=== PATIENT | female | born 1990 ===

== ENCOUNTER 2017-08-19 09:52 | Inpatient (IN) | payer MEDICAID ==
[2017-08-19 10:49] VITALS: BMI 34.4
[2017-08-19] MEDS: Lactated Ringer's 1,000 ML IV SCH ×2 (11:00→11:45)
[2017-08-19] MEDS ORDERED: ceFAZolin IV 2 gm in Dextrose 2 GM/50 ML BAG IVPB ONE (11:10)
[2017-08-19] MEDS ORDERED: Oxytocin 30 units/LR 500ML 30 U/500 ML BAG IV ONE (11:20)
[2017-08-19 11:56] LABS: BASO # 0.1 K/uL (0.0-0.2); BASO % 0.5 % (0.0-2.0); EOS # 0.1 K/uL (0.0-0.7); HEMOGLOBIN 10.8 g/dL (12.0-16.0); LYMPH # 1.6 K/uL (1.0-4.3); LYMPH % 14.8 % (20.0-40.0); MEAN CELL VOLUME 75.9 fl (81.0-99.0); MEAN PLATELET VOLUME 8.7 fl (7.2-11.7); MONO # 0.9 K/uL (0.0-0.8); NEUT # 8.3 K/uL (1.8-7.0); NEUT % 75.7 % (50.0-75.0); RBC 4.3 Mil/uL (3.80-5.20); RED CELL DISTRIBUTION WIDTH 16.2 % (11.5-14.5)
[2017-08-19] MEDS ORDERED: Morphine 1 mg/ml preservative-free Inj(Duramorph) ONE (12:39)
[2017-08-19] MEDS ORDERED: ePHEDrine 50 mg/ml Inj ONE (13:05)
[2017-08-19] MEDS ORDERED: Morphine 1 mg/ml preservative-free Inj(Duramorph) IT ONE (13:18)
--- NOTE | 2017-08-19 14:23 | OBADHP ---
Datetime: 08/19/2017 14:11 Admit Comment, IP Provider: Patient is a 27 yo who presents today for a scheduled primary csec tion due to Macrosomia with EFW 10 lbs. Patient denies contractions, no vaginal bleeding or demetris kage of fluids. movement present. PMHx- NOne PSurgHx- LEEP Social Hx- Patiend denies smoking, drinking and drug use Meds- PNV All- NKDA Labs- RPR- NR A pos Gc/Chlamydia negative Quantiferon pos, for chest x ray pp Glucola- 127, 139 HIV- NR Pap - NILM HPV pos 04/20/2017 GBS - negative US 08/02- EFW 4287gms >99% GUEVARA 19 Patient consented for cs 08/18/17 with Yemeni interpretor present. All risks and benefits reviewed A/P- 27yo at 39+ wks for Primary cs due to macrosomia NPO IVF Ancef 2gm IV Prep for OR Pelvic Type - PN: Adequate Extremities - PN: Normal Abdomen - PN: Normal Back - PN: Normal Breast - PN: Normal Lungs - PN: Normal Heart - PN: Normal Thyroid - PN: Normal Neurologic - PN: Normal HEENT - PN: Normal General - PN: Normal IP Chief Complaint: Scheduled Section Genitourinary Exam: Normal DTRs - PN: Normal IP Adm Impression: Term, intrauterine IP Admit Plan: Admit to unit
--- NOTE | 2017-08-19 14:26 | OBDS ---
DELIVERY PERSONNEL Delivery Doctor: Constance Lynn MD Scrub Nurse: Tierra Sadaf OBT Digital Design Engineer: Edwin Joe RN Anesthesiologist: Cahndni, MATERNAL INFORMATION Delivery Anesthesia: Spinal Medications in Delivery: Pitocin Estimated Blood Loss (ml): 800 Placenta Cultured: No Maternal Complications: None Provider Comments: See Operative note LABOR SUMMARY EDC: 08/23/2017 00:00 No. Babies in Womb: 1 Attempted: No Labor Anesthesia: None LABOR INFORMATION Group B Beta Strep: Negative STAGES OF LABOR Stage 3 hrs: 0 Stage 3 min: 1 CSECTION DELIVERY Primary Indication: Macrosomia CSection Urgency: Elective CSection Incidence: Repeat Labor: No Labor CSection Incision: Lower Uterine Transverse BABY A INFORMATION Delivery Date/Time: 08/19/2017 13:13 Method of Delivery: Born in Route : No : N/A Forceps: N/A Vacuum Extraction: N/A Shoulder Dystocia : No SHOULDER DYSTOCIA BABY A Delivery Date/Time: 08/19/2017 13:13 PRESENTATION/POSITION BABY A Presentation: Cephalic PLACENTA INFORMATION BABY A Placenta Delivery Time : 08/19/2017 13:14 Placenta Method of Delivery: Manual Removal Placenta Status: Delivered SCORES BABY A Heart Rate 1 min: >100 bpm Resp Effort 1 min: Good Cry Reflex Irritability 1 min: Cough or Sneeze or Pulls Away Muscle Tone 1 min: Active Motion Color 1 min: Body [place], Extremities Blue SCORE 1 MIN: 9 Heart Rate 5 min: >100 bpm Resp Effort 5 min: Good Cry Reflex Irritability 5 min: Cough or Sneeze or Pulls Away Muscle Tone 5 min: Active Motion Color 5 min: Body [place], Extremities Blue SCORE 5 MIN: 9 INFORMATION BABY A Gestational Age at Delivery: 39.0 Gestational Status: Term Outcome : Liveborn Condition : Stable Infant Sex: Male IDENTIFICATION/MEDS BABY A ID Band Number: [id number] WEIGHT/LENGTH BABY A Birthweight (gms): 4780 Weight (lb): 10 Infant Weight (oz): 9 CORD INFORMATION BABY A No. Cord Vessels: 3 Nuchal Cord : N/A Cord Blood Taken: Yes Suction: Mouth; Nose ASSESSMENT BABY A Complications: None Physical Findings at Delivery: Within Normal Limits Infant Respirations: Appears Normal Infant Care By: Transferred To: [facility]
[2017-08-20 08:22] LABS: HEMOGLOBIN 10.9 g/dL (12.0-16.0); MEAN CORPUSCULAR HEMOGLOBIN 25.1 pg (27.0-31.0); MEAN CORPUSCULAR HGB CONC 33.9 g/dL (33.0-37.0); RBC 4.34 Mil/uL (3.80-5.20); RED CELL DISTRIBUTION WIDTH 15.7 % (11.5-14.5); WHITE BLOOD COUNT 12.5 K/uL (4.8-10.8)
--- NOTE | 2017-08-20 18:18 | OBPPN ---
Datetime: 08/20/2017 07:09 PP Pain Prov: Within normal limits PP Nausea Prov: Denies PP Flatus Prov: Yes PP BM Prov: No PP Breasts Prov: Not Done PP Heart Prov: Normal PP Lungs Prov: Normal PP Abdomen/Uterus Prov: Normal PP Lochia Prov: Normal PP Vulva/Perineum Prov: Not Done PP CVA Tenderness Prov: Normal PP Extremities Prov: Normal PP Progress Prov: Abnormal PP Impression Prov: Normal progression PP Plan Prov: Continue present management PP Progress Note Prov: POD 1 S: 27 yo s/p on 08/19/2017. Pt. is seen and examined at bedside this AM. No sign ificant overnight events. Pt reports mild abdominal pain rated 4/10, but well controlled with pain me ds. D/c nayak, dressing to be removed in the afternoon. No nausea, advised to continue diet as tolera mildred. Bottle feeding without difficulty. Lochia is similar to menses volume. No bowel movement, but pa ssing gas per rectum. Denies fever/chills, diarrhea, nausea/vomiting, chest pain, dyspnea, and dizzin ess. O: VS: stable GEN: NAD Cardio: S1S2, no murmurs Lungs: clear breath sounds b/l, no wheezing Abdomen: BS+, tenderness to palpation. Incision scar to be examined with dressing removal in the a fternoon. Uterus is firm and at the level of the umbilicus. EXT: No edema, calves nontender NEURO/PSYCH: AAOx3, no grossly focal deficits, preserved affect and mood. Assessment/Plan: 27 yo s/p on 08/19/2017. Pt remains afebrile, tolerating pain w ith medication, doing well on POD#1. OOB with caution SCDs for DVT prophylaxis, encouraged ambulating Percocet 5/325mg, and Motrin 600mg for pain. Colace 100mg PO BID/Senokot 17.2 mg for constipation Encourage and ambulating f/u CBC post op, pending Tdap before d/c Anticipated d/c to home, 08/22/2017. Case dw OB attending --- Kyle Pérez MD PGY-1 . Attending Note: Pt was seen and discussed with Resident and I agree with the above. IP PP Procedures: None Vital Signs Provider PP: Reviewed; Within Normal Limits Vital Signs Provider Details PP: Incision scar to be examined in afternoon with dressing removal. Bottle feeding.
--- NOTE | 2017-08-21 08:33 | OBPPN ---
Datetime: 08/21/2017 07:13 PP Pain Prov: Within normal limits PP Nausea Prov: Denies PP Flatus Prov: Yes PP BM Prov: Yes PP Breasts Prov: Not Done PP Heart Prov: Normal PP Lungs Prov: Normal PP Abdomen/Uterus Prov: Normal PP Lochia Prov: Normal PP Vulva/Perineum Prov: Not Done PP CVA Tenderness Prov: Normal PP Extremities Prov: Normal PP C/S Incision Prov: Normal PP Progress Prov: Normal PP Impression Prov: Normal progression PP Plan Prov: Continue present management PP Progress Note Prov: 27 y/o F, , s/p . Patient see and examined this morning at the [facility], laying comfortably on bed. Pain is well controlled by medications, encourage ambulation, tole rating PO well. Incision looks intact and clean, + gas and BM last night. Patient denies too much ble eding. Denies chest pain, dyspnea, n/v, fever/chills, diarrhea, nausea/vomiting, and calf pain. O: VS: wnl, afebrile GEN: Awake, alert. NAD HEENT: EOMI, moist mucosa. LUNGS: CTA B/L, no wheezing, rhonci, or rales CVS: RRR, S1, S2 no murmurs ABD: ND, -BS, soft abdomen, firm fundus @ umbilical level. Incision clean and intact no erythema or exudates. EXT: No edema, neg calf tenderness NEURO/PSYCHI: AAOx3, no grossly focal deficit, preserved affect and mood. Assessment/Plan: 27 y/o F, , s/p C. Pt remains afebrile, c/o mild pain. Doing well on POD 2. -C/w regular diet as tolerated, -OOB with caution SCDs for DVT prophylaxis -C/w Percocet 5/325 mg and Ibuprofen 600 mg for pain prn -C/w Colace 100mg PO BID PRN -Encourage and ambulation -H/H 10.9/32.1 -f/u CXR due to + quantiferon gold. -Tdap before d/c. -Anticipated d/c on 08/22/17 YBecerra PGY-1 Attending Note: Pt was d/w resident and I agree with the above. IP PP Procedures: None Vital Signs Provider PP: Reviewed; Within Normal Limits
--- NOTE | 2017-08-21 10:09 | RAD ---
HISTORY: Positive Quantiferon Gold COMPARISON: No prior. TECHNIQUE: Chest PA and lateral FINDINGS: LUNGS: No active pulmonary disease. PLEURA: No significant pleural effusion identified. No pneumothorax apparent. CARDIOVASCULAR: Normal. OSSEOUS STRUCTURES: No significant abnormalities. VISUALIZED UPPER ABDOMEN: Normal. OTHER FINDINGS: None. IMPRESSION: No active disease.
[2017-08-22] MEDS ORDERED: Tetanus/Diphtheria Toxoids 0.5 ml Syringe IM ONE (09:00)
--- NOTE | 2017-08-22 10:30 | OBPPN ---
Datetime: 08/22/2017 07:00 PP Pain Prov: Within normal limits PP Nausea Prov: Denies PP Flatus Prov: Yes PP BM Prov: Yes PP Breasts Prov: Not Done PP Heart Prov: Normal PP Lungs Prov: Normal PP Abdomen/Uterus Prov: Normal PP Lochia Prov: Normal PP Vulva/Perineum Prov: Not Done PP CVA Tenderness Prov: Normal PP Extremities Prov: Normal PP C/S Incision Prov: Normal PP Progress Prov: Normal PP Impression Prov: Normal progression PP Plan Prov: Discharge PP Progress Note Prov: POD 3 S: 27 yo s/p on 08/19/2017. Pt. is seen and examined at bedside this AM. No over night events. Pt reports mild abdominal pain, but well controlled with pain meds. D/c nayak, dressing removed, incision site healing well, no exudate seen, dry and intact. No nausea, advanced diet as to lerated. Breast feeding without difficulty. Lochia is similar to menses volume. Bowel movement yester day and passing gas per rectum. Denies fever/chills, diarrhea, nausea/vomiting, chest pain, dyspnea, and dizziness. O: VS: stable GEN: NAD Cardio: S1S2, no murmurs Lungs: clear breath sounds b/l, no wheezing Abdomen: BS+, slight tenderness to palpation. Incision scar noted, well healing with no exudate se en, dry and intact. Uterus is firm and at the level of the umbilicus. EXT: No edema, calves nontender NEURO/PSYCH: AAOx3, no grossly focal deficits, preserved affect and mood. Assessment/Plan: 27 yo s/p on 08/19/2017. Pt remains afebrile, tolerating pain w ith medication, doing well on POD#3. OOB with caution SCDs for DVT prophylaxis, encouraged ambulating Percocet 5/325mg, and Motrin 600mg for pain. Encourage and ambulating f/u CBC post op: 10.9/32.9 Tdap before d/c Anticipated d/c to home, 08/22/2017. Case dw OB attending --- Kyle Pérez MD PGY-[address] Weir: patient evaluated independently and I agree with the above IP PP Procedures: None Vital Signs Provider PP: Reviewed; Within Normal Limits
--- NOTE | 2017-08-22 10:30 | OBDCSUM ---
Datetime: 08/22/2017 07:22 Discharged to, Provider: Home Follow up at, Provider: Dr. Lynn Disch Instr Activity: Normal activity Disch Instr Diet: Regular Discharge Instructions, Provider: Routine instructions given Discharge Diagnosis, Provider: Term Delivered Discharge Time: 08/22/2017 12:00 Follow up in weeks, Provider: 4 days wound care; 6 wks post Disch Referrals: None Contraception discussed, Prov: Yes Disch Activity Restrictions: No lifting; No driving; Nothing in vagina - [place], tampons, douch e Discharge Comment, Provider: Discharge Summary DOA: 08/19/2017 EGA: 39.3 Diagnosis: Term Risk factors: none Summary of : 27 yo s/p on 08/19/2017. L_D summary DOL: 08/19/2017 at 13:13 NB: M : 11/27 Weight: 4780 g PP summary No serious complications during PP/Post-Op. Lochia= menses, mild pain, controlled with medications Rubella immune, Tdap 08/21/2017 Blood type: A+ CBC pp: 10.9/32.1 Discharge Date: 08/22/2017 Time 10:00 AM Discharge Instructions: -encourage -percocet/Ibuprofen for pain PRN -Ambulate as tolerated -f/u NB visit 3-7 days w/ repairer general and PP visit 6 weeks with OB; Wound care 4-7 days -Contraception: abstinence; pt reports not having a partner. Case d/w OB attending --- Kyle Pérez MD PGY-1 Contraception after Delivery: Undecided
--- NOTE | 2017-08-22 13:52 | OP ---
PROCEDURE DATE: 08/19/2017 PREOPERATIVE DIAGNOSES: Term with macrosomia, desires primary section. POSTOPERATIVE DIAGNOSES: Term with macrosomia, desires primary section, and delivered. PROCEDURE: Primary low transverse section. SURGEON: Rosanna Lane MD LIVESTOCK YARD SUPERVISOR: Montana Jose MD TYPE OF ANESTHESIA: Spinal. ESTIMATED BLOOD LOSS: 800 mL. URINE OUTPUT: 200 mL of clear at the end of the procedure. INTRAVENOUS FLUIDS: 2000 mL lactated Ringer's. FINDINGS: A live male with Apgars of 9 and 9, weight of 10 pounds 9 ounces, delivered in vertex presentation, and light meconium fluid noted. Grossly normal tubes, ovaries, and uterus, closure subcuticular. DESCRIPTION OF PROCEDURE: The patient was taken to the operating room and given spinal anesthesia without difficulty. She was then prepped and draped in the normal sterile fashion in a dorsal supine position with a leftward tilt. A Pfannenstiel skin incision was then made with a scalpel and carried down to the underlying layer of fascia with the Bovie. The fascia was incised in the midline. The incision was then extended laterally using the Bovie. The inferior aspect of the fascial incision was then grasped with Tawana clamps, elevated, and the underlying rectus muscles were dissected off sharply with the Bovie then bluntly. Attention was then turned to the superior aspect of the fascial incision, which in a similar fashion was dissected off sharply with the Bovie and then bluntly. The rectus muscles were meticulously in the midline, the peritoneum was identified, tented up, and entered with Metzenbaum scissors. The incision was then extended laterally with superiorly and inferiorly with paying close attention to the bladder. The bladder blade was then inserted, the vesicouterine peritoneum was identified, tented up, and entered with Metzenbaum scissors. The incision was then extended laterally and the bladder flap was created gently. The bladder blade was then reinserted and the lower uterine segment was then identified, and entered in a transverse fashion with the scalpel. This incision was then extended laterally using bandage scissors and the membranes were then ruptured, light meconium fluid noted. The was then delivered in the vertex presentation atraumatically. The nose and mouth were suctioned on the abdomen. The cord was doubly clamped and cut. The infant was handed off to awaiting pediatricians. Cord blood was then taken. Placenta was exteriorized spontaneously and intact. The uterus was exteriorized and cleared of all clots and debris. The uterine incision was then closed with 1 Vicryl in a running lock fashion and a second layer was then placed with imbrication and good hemostasis was noted. Inspection of uterus, tubes and ovaries revealed grossly normal findings. Copiously Irrigation was performed. The uterus was returned to the abdomen. The gutters were cleared of all clots. Inspection of the incision again revealed good hemostasis. The peritoneum was then closed with 2-0 Vicryl in a running fashion and three further horizontal mattress sutures were then placed in vesicouterine confirmation. The fascia was reapproximated with 0 Vicryl in a running fashion bilaterally to the midline. The Bovie was used to obtain good hemostasis on the subcutaneous fat layer and the layer was then closed with 4 interrupted stitches using 3-0 plain suture. The skin was closed with 3-0 Monocryl on a Sylvester needle for subcuticular stitch and the incision was then covered with Steri-Strips and a sterile dressing. The patient tolerated the procedure well. Sponge, lap and needle counts were correct x4. Ancef 2 grams were given preoperatively. The patient was then taken to recovery room in stable condition. There was no injury to the bladder, bowel, ureter or baby. Due to the nature of this case, an assistant professor sculpture was requested and my assistant professor sculpture Dr. Montana Jose was present for the entire procedure from the initial incision to the patient's transfer to the recovery room. He assisted with entry into the abdominal cavity, delivery of the baby and closure of all layers of the abdomen including closing the peritoneum fashion, muscle and skin. His assistance on this case was vital for the procedure. Rosanna Lane MD
[2017-08-22 19:00] VITALS: BP 137/81; PULSE 81; RESP 20; TEMP 98; O2SAT 99
== END 2017-08-22 14:10 | disposition home or self-care (01) | DRG 371 ==
LOC: H.EROB2 09:52 → H.L&D 10:18 → H.EROB2 11:14 → H.OB/GYN 17:06
PROVIDERS: ADMIT Obstetrics & Gynecology; ATTEND Obstetrics & Gynecology
PROC: 10D00Z1 Extraction of Products of Conception, Low, Open Approach (ICD-10-PCS; principal; 2017-08-19)
PROC: 4A1HXCZ Monitoring of Products of Conception, Cardiac Rate, External Approach (ICD-10-PCS; 2017-08-19)
DX: O36.63X0 Maternal care for excessive fetal growth, third trimester, not applicable or unspecified (principal); O77.0 Labor and delivery complicated by meconium in amniotic fluid; Z37.0 Single live birth; Z3A.39 39 weeks gestation of pregnancy